=== PATIENT | male | born 1990 | race American Indian/Alaskan Native ===

== ENCOUNTER 2016-05-08 04:57 | Emergency (ER) | payer SELFPAY ==
[2016-05-08 05:17] VITALS: BP 128/78
--- NOTE | 2016-05-08 18:34 | ED Elopement Review ---
ED Pt Elopement review - Call Back decision Pt Call Back Decision: No action required
== END 2016-05-08 05:00 | disposition left against medical advice (07) ==
LOC: ED 04:57
DX: R07.9 Chest pain, unspecified (principal); Z53.21 Procedure and treatment not carried out due to patient leaving prior to being seen by health care provider
CPT/HCPCS: 93005; 93010